=== PATIENT | male | born 1950 | race Two or more races ===

== ENCOUNTER 2017-08-21 10:27 | Emergency (ER) | payer SELFPAY ==
[~2017-08-21] VITALS: Ht 162.6 cm; Wt 76.4 kg
[2017-08-21 10:29] VITALS: Ht 162.6 cm; Wt 76.4 kg
[2017-08-21] MEDS ORDERED: ASPIRIN 325 MG TAB PO STA (12:28)
[2017-08-21] MEDS ORDERED: NITROGLYCERIN 2% 1 GM OINT PKT TD STA (12:28)
[2017-08-21 12:48] LABS: BASOPHILS % 0.5 % (0.0-2.0); EOSINOPHILS # 0.3 10^3/ul (0.0-0.5); EOSINOPHILS % 4.6 % (0.0-7.0); HEMATOCRIT 44.2 % (42.0-52.0); HEMOGLOBIN 14.4 g/dl (14.0-18.0); LYMPHOCYTES # 2.5 10^3/ul (0.8-2.9); LYMPHOCYTES % 33.6 % (15.0-51.0); MEAN CORPUSCULAR HGB CONC 32.6 g/dl (32.0-37.0); MEAN CORPUSCULAR VOLUME 88.9 fl (82.0-101.0); MEAN PLATELET VOLUME 10.7 fl (7.4-10.4); MONOCYTE # 0.7 10^3/ul (0.3-0.9); MONOCYTES % 10.1 % (0.0-11.0); NEUTROPHIL # 3.7 10^3/ul (1.6-7.5); NEUTROPHILS % 50.9 % (39.0-77.0); PLATELET COUNT 239 10^3/UL (140-415); RED BLOOD COUNT 4.97 10^6/ul (4.70-6.10); RED CELL DISTRIBUTION WIDTH 14.4 % (11.5-14.5); WHITE BLOOD COUNT 7.3 10^3/ul (4.8-10.8)
--- NOTE | 2017-08-21 13:04 | RADRPT ---
PROCEDURE: XR Chest. CLINICAL INDICATION: Cough and chest pain. TECHNIQUE: Single frontal view. COMPARISON: None. FINDINGS: The lungs are clear. The heart size is normal. There is no pleural effusion. There is no pneumothorax. IMPRESSION: 1. Normal chest radiograph. RPTAT: QQ .Ashwin Mata MD, MD Date Time Electronically viewed and signed by .Ashwin Mata MD, on 08/21/2017 13:04 .R/
[2017-08-21 13:11] LABS: ALANINE AMINOTRANSFERASE 44 IU/L (13-69); ALBUMIN 4.4 g/dl (3.3-4.9); ALBUMIN/GLOBULIN RATIO 1.04; ALKALINE PHOSPHATASE 77 IU/L (42-121); ANION GAP 17 (8-16); ASPARTATE AMINO TRANSFERASE 42 IU/L (15-46); BILIRUBIN,INDIRECT 0.4 mg/dl (0-1.1); BILIRUBIN,TOTAL 0.4 mg/dl (0.2-1.3); BLOOD UREA NITROGEN 13 mg/dl (7-20); CALCIUM 9.6 mg/dl (8.4-10.2); CARBON DIOXIDE 27 mmol/L (21-31); CHLORIDE 101 mmol/L (97-110); CREATININE 1.06 mg/dl (0.61-1.24); GLUCOSE 140 mg/dl (70-220); POTASSIUM 4.1 mmol/L (3.5-5.1); SODIUM 141 mmol/L (135-144); TOTAL PROTEIN 8.6 g/dl (6.1-8.1)
[2017-08-21 13:27] LABS: TROPONIN-I < 0.012 ng/ml (0.00-0.12)
[2017-08-21 13:41] LABS: INR 0.94; PARTIAL THROMBOPLASTIN TIME 30.1 Sec (25.0-35.0); PROTIME 12.7 Sec (11.9-14.9)
[2017-08-21] MEDS ORDERED: NITR0.4T32 SL (14:03)
--- NOTE | 2017-08-21 14:09 | ERD ---
ER Documentation Chief Complaint Chief Complaint COUGH X 2 WEEKS AND NOW HAS CWP WHEN COUGHING HPI This is a 67-year-old male who is here for chest pain and cough. The patient had a cough for 2 or 3 days. Patient is also complaining of chest pain for 2 months. The patient's son made him go to the ER to get evaluated. Patient states he has had chest pain for 2 months described as a heaviness in his central chest with occasional left arm tingling. He says the pain will occur when he is exerting himself and then when he stops exerting he will rest and the pain will go away. Does not have any chest pain at rest. No diaphoresis palpitations nausea syncope abdominal pain or back pain. Currently the pain is gone. The patient is diabetic is medical history and has no other cardiac risk factors ROS All systems reviewed and are negative except as per history of present illness. Medications Home Meds Active Scripts Nitroglycerin* (Nitroglycerin* SL) 0.4 Mg Tab.subl, 0.4 MG SL Q5MIN Y for CHEST PAIN, #14 BOTTLE Prov:ELINA MORTENSEN DO 08/21/17 Allergies Allergies: Coded Allergies: No Known Allergy (Unverified , 08/21/17) PMhx/Soc Medical and Surgical Hx: pt denies Medical Hx Hx Miscellaneous Medical Probl: Yes (dm) Hx Alcohol Use: Yes Hx Substance Use: No Hx Tobacco Use: No Smoking Status: Never smoker FmHx Family History: No coronary disease Physical Exam Vitals Vital Signs Date Time Temp Pulse Resp B/P Pulse Ox O2 Delivery O2 Flow Rate FiO2 08/21/17 12:38 65 17 139/84 99 Room Air 08/21/17 10:29 99.1 73 18 125/79 98 Physical Exam Const: Well-developed, well-nourished Head: Atraumatic, normocephalic Eyes: Normal Conjunctiva, PERRLA, EOMI, normal sclera, no nystagmus ENT: Normal External Ears, Nose and Mouth, moist mucus membranes. Neck: Full range of motion. No meningismus, no lymphadenopathy. Resp: Clear to auscultation bilaterally, no wheezing, rhonchi, rales Cardio: Regular rate and rhythm, no murmurs, S1 S2 present Abd: Soft, non tender x 4, non distended. Normal bowel sounds, no guarding or rebound, no pulsitile abdominal masses or bruits Skin: No petechiae or rashes, no ecchymosis , no maculopapular rash Back: No midline or flank tenderness Ext: No cyanosis, or edema, FROM x 4, normal inspection, neurovascularly intact x 4 Neur: Awake and alert, STR 5/5 x 4, sensation intact x 4, no focal findings, cerebellum intact Psych: Normal Mood and Affect Result Diagram: 08/21/17 1220 08/21/17 1220 Results 24 hrs Laboratory Tests Test 08/21/17 12:20 White Blood Count 7.310^3/ul Red Blood Count 4.9710^6/ul Hemoglobin 14.4g/dl Hematocrit 44.2% Mean Corpuscular Volume 88.9fl Mean Corpuscular Hemoglobin 29.0pg Mean Corpuscular Hemoglobin Concent 32.6g/dl Red Cell Distribution Width 14.4% Platelet Count 93982^3/UL Mean Platelet Volume 10.7fl Neutrophils % 50.9% Lymphocytes % 33.6% Monocytes % 10.1% Eosinophils % 4.6% Basophils % 0.5% Nucleated Red Blood Cells % 0.0/100WBC Neutrophils # 3.710^3/ul Lymphocytes # 2.510^3/ul Monocytes # 0.710^3/ul Eosinophils # 0.310^3/ul Basophils # 0.010^3/ul Nucleated Red Blood Cells # 0.010^3/ul Prothrombin Time 12.7Sec Prothrombin Time Ratio 1.0 INR International Normalized Ratio 0.94 Activated Partial Thromboplast Time 30.1Sec Sodium Level 141mmol/L Potassium Level 4.1mmol/L Chloride Level 101mmol/L Carbon Dioxide Level 27mmol/L Anion Gap 17 Blood Urea Nitrogen 13mg/dl Creatinine 1.06mg/dl Glucose Level 140mg/dl Calcium Level 9.6mg/dl Total Bilirubin 0.4mg/dl Direct Bilirubin 0.00mg/dl Indirect Bilirubin 0.4mg/dl Aspartate Amino Transf (AST/SGOT) 42IU/L Alanine Aminotransferase (ALT/SGPT) 44IU/L Alkaline Phosphatase 77IU/L Troponin I < 0.012ng/ml Total Protein 8.6g/dl Albumin 4.4g/dl Globulin 4.20g/dl Albumin/Globulin Ratio 1.04 Current Medications Medications (Trade) Dose Ordered Sig/Gerry Route PRN Reason Start Time Stop Time Status Last Admin Dose Admin Aspirin (Aspirin) 325 mg ONCE STAT PO 08/21/17 12:28 08/21/17 12:30 DC 08/21/17 12:37 Nitroglycerin (Nitroglycerin 2% Oint) 1 inch ONCE STAT TD 08/21/17 12:28 08/21/17 12:30 DC 08/21/17 12:37 Procedures/MDM EKG: Rate/Rhythm: Normal Sinus Rhythm,NL intervals QRS, ST, QT: NORMAL NE, QRS, QT] Impression: NORMAL EKG PROCEDURE: XR Chest. CLINICAL INDICATION: Cough and chest pain. TECHNIQUE: Single frontal view. COMPARISON: None. FINDINGS: The lungs are clear. The heart size is normal. There is no pleural effusion. There is no pneumothorax. IMPRESSION: 1. Normal chest radiograph. RPTAT: QQ .Ashwin Mata MD, MD Date Time Electronically viewed and signed by .Ashwin Mata MD, MD on 08/21/2017 13:04 .R/ CC: ELINA MORTENSEN DO Patient is refusing admission to the hospital and will sign out AGAINST MEDICAL ADVICE. The patient was told with [place] head greenskeeper nurseJanes, the risk of leaving AMA and the risks are cardiac arrest and . The patient says he understands these risks and says he is going back home on 27 August and will follow up with his doctor there. I did prescribe him nitroglycerin sublingual to take if he gets chest pain again and told him to return to the ER as soon as possible Departure Diagnosis: Primary Impression: Chest pain Chest pain type: unspecified Qualified Code: R07.9 - Chest pain, unspecified type Condition: Stable Patient Instructions: Chest Pain, Uncertain Cause ELINA MORTENSEN DO Aug 21, 2017 14:09
[2017-08-21 14:10] VITALS: BP 140/78; PULSE 75; RESP 19
== END 2017-08-21 14:10 | disposition left against medical advice (07) ==
LOC: E/R 10:27
DX: R07.9 Chest pain, unspecified (principal); E11.9 Type 2 diabetes mellitus without complications
CPT/HCPCS: 36415; 71010; 80053; 84484; 85025; 85610; 85730; 93005